=== PATIENT | female | born 1995 | race Caucasian/White ===

== ENCOUNTER → 2018-01-02 | Outpatient (CLI) | payer BC, OTHER | END | disposition home or self-care (01) | LOC: C.PAPS 13:48 | PROVIDERS: ATTEND Physician Assistant | DX: Z01.419 Encounter for gynecological examination (general) (routine) without abnormal findings (principal) ==

== ENCOUNTER → 2018-01-02 | Outpatient (CLI) | payer BC, OTHER ==
[2018-01-02 13:40] LABS: LUTEINIZING HORMONE 19.2 IU/L; PROLACTIN 7.55 ng/mL
[2018-01-02 13:41] LABS: FOLLICLE STIMULAT HORMONE 9.22 IU/L
== END | disposition home or self-care (01) ==
LOC: C.LAB1850 12:00
PROVIDERS: ATTEND Obstetrics & Gynecology
DX: N91.5 Oligomenorrhea, unspecified (principal)